=== PATIENT | male | born 1975 | race Caucasian/White ===

== ENCOUNTER → 2019-08-30 15:36 | Outpatient (CLI) | payer OTHER, MEDICAID, SELFPAY ==
[2019-08-30 19:11] LABS: Thyroid Stimulating Hormone 139 uIU/mL (0.47-4.68)
== END ==
PROVIDERS: Family Provider Family Medicine; PCP Family Medicine; Referring Provider Family Medicine; Visit Provider Family Medicine
DX: Z00.00 Encounter for general adult medical examination without abnormal findings (principal); E03.9 Hypothyroidism, unspecified; E78.5 Hyperlipidemia, unspecified; E27.49 Other adrenocortical insufficiency
CPT/HCPCS: 36415; 84443

== ENCOUNTER → 2019-09-27 16:39 | Outpatient (CLI) | payer OTHER, MEDICAID, SELFPAY ==
[2019-09-27 18:01] LABS: Add Manual Diff / Slide Review NO; Basophils Absolute Auto 100 /uL (0-100); Basophils Percent Auto 0.7 % (0-2); Eosinophils Absolute Auto 200 /uL (0-450); Eosinophils Percent Auto 2.5 % (2-4); Hematocrit 40.7 % (41-53); Lymphocytes Absolute Auto 1600 /uL (1100-4500); Lymphocytes Percent Auto 22.7 % (25-40); Mean Corpuscular HGB Conc 34.5 % (30-36); Mean Corpuscular Volume 98.5 fL (80-100); Monocytes Absolute Auto 600 /uL (0-900); Monocytes Percent Auto 8.2 % (3-14); Neutrophils Absolute Auto 4700 /uL (1500-7000); Neutrophils Percent Auto 65.9 % (50-75); Platelet Count 279 X10^3/uL (150-400); Red Blood Cell Count 4.13 X10^6/uL (4.5-5.9); Red Cell Distribution Width 13.6 % (11.6-14.8); White Blood Cell Count 7.1 X10^3/uL (4.5-11.0)
[2019-09-27 19:14] LABS: Alanine Aminotransferase 17 IU/L (<50); Albumin 4.7 g/dL (3.5-5.0); Albumin Globulin Ratio 1.9 (1.0-2.8); Alkaline Phosphatase 89 U/L (38-126); Aspartate Aminotransferase 25 IU/L (17-59); BUN Creatinine Ratio 22.3 (6-22); Bilirubin Total 0.5 mg/dL (0.2-1.3); Blood Urea Nitrogen 21 mg/dL (9-20); Calcium 9.6 mg/dL (8.4-10.2); Carbon Dioxide 29 mmol/L (22-32); Chloride 98 mmol/L (98-107); Cholesterol 136 mg/dL (140-199); Estimated Glomerular Filt Rate > 60.0 mL/min (>60); Globulin 2.5 g/dL (1.7-4.1); Glucose 106 mg/dL (70-100); HDL Cholesterol 44 mg/dL (40-60); HEMOLYSIS < 15 (0-50); LDL Cholesterol Calculated 59 mg/dL (<100); Potassium 3.7 mmol/L (3.4-5.1); Sodium 138 mmol/L (137-145); Total Protein 7.2 g/dL (6.3-8.2); Triglycerides 165 mg/dL (35-150)
[2019-09-27 19:25] LABS: LDL Cholesterol Direct 80 mg/dL (<100)
== END ==
PROVIDERS: Family Provider Family Medicine; PCP Family Medicine; Referring Provider Family Medicine; Visit Provider Family Medicine
DX: Z00.00 Encounter for general adult medical examination without abnormal findings (principal); E78.5 Hyperlipidemia, unspecified
CPT/HCPCS: 36415; 80053; 80061; 83721; 85025

== ENCOUNTER 2020-03-27 22:29 | Emergency (ER) | payer OTHER, MEDICAID, SELFPAY ==
[2020-03-27 22:40] VITALS: BP 176/100; PULSE 107; RESP 20; TEMP 37.2; O2SAT 100
--- NOTE | 2020-03-27 23:57 | DI.US.S_ITS ---
PROCEDURE: US SCROTUM INDICATIONS: BILATERAL TESTICULAR PAIN TECHNIQUE: Real-time scanning was performed of the scrotum and testicles, with image documentation. Color and pulse Doppler interrogation was performed of both testicles. COMPARISON: None. FINDINGS: Right: Testicle is normal in size at 4.0 x 2.8 x 2.5 cm, and homogenous in echotexture. Epididymis is normal in overall size and morphology. Trace right hydrocele. No varicoceles. Overlying scrotal skin is normal in thickness. Left: Testicle is normal in size at 4.2 x 2.4 x 3.0 cm, and homogeneous in echotexture. There is a 5 mm cyst in the epididymal head. Epididymis is normal in overall size and morphology. No hydrocele or varicoceles. Overlying scrotal skin is normal in thickness. Doppler: Color and pulse Doppler demonstrate normal and symmetric arterial flow in both testicles. IMPRESSION: 1. Normal ultrasound appearance of testicles. No testicular mass or findings to suggest testicular torsion. 2. A 5 mm cyst in the left epididymal head. 3. Trace right hydrocele. No significant discrepancy with the [facility] radiology preliminary report. Dictated by: Abundio Melton M.D. on 03/28/2020 at 8:57 Approved by: Abundio Melton M.D. on 03/28/2020 at 9:00
--- NOTE | 2020-03-27 23:58 | ED_ITS ---
HPI - Male Genitourinary General Chief complaint: Urogenital-Male Stated complaint: testicular pain moving up Time Seen by Provider: 03/27/20 22:37 Source: patient Mode of arrival: Ambulatory History of Present Illness HPI Narrative: Patient complains of bilateral testicular pain and groin pain for the past 6 weeks. No known injury. No urethral discharge. Pain is intermittent. Denies any past STDs or exposure. No known injury. No history of hernias. Blood pressure noted. Patient is anxious. No urethral discharge. No urinary complaints. No hematuria. MD Complaint: testicle pain Related Data Home Medications Medication Instructions Recorded Confirmed pravastatin 10 mg PO QDAY #0 08/28/12 Allergies Allergy/AdvReac Type Severity Reaction Status Date / Time Penicillins [PENICILLINS] Allergy Unknown Unverified 06/16/17 11:53 venom-honey bee Allergy Unknown Unverified 06/16/17 11:53 [BEE VENOM (HONEY BEE)] Review of Systems Review of Systems Narrative: GENERAL: Denies chills, fatigue, malaise, fever, sweats. HEENT: Denies sinus pain, ear pain, sore throat, difficulty swallowing RESPIRATORY: Denies dyspnea, cough CARDIOVASCULAR: Denies chest pain, palpitations, edema, GASTROINTESTINAL: Denies nausea, vomiting, abdominal pain, diarrhea, constipation, melena. : Denies dysuria, frequency, hematuria, complains of testicular pain MUSCULOSKELETAL: denies muscle or bony pain SKIN: Denies rash, skin lesions NEUROLOGIC: Denies weakness, headache, numbness, change in speech, confusion PSYCHIATRIC: No SI or HI or hallucinations ROS Unobtainable: All systems reviewed & are unremarkable except as noted in HPI and below Exam Narrative Exam Narrative: GENERAL: patient appears stated age. Well-nourished, well- developed patient, in no distress, not toxic not dyspneic HEAD: Normocephalic. CARDIOVASCULAR: Regular rate and rhythm without murmurs, gallops, or rubs. RESPIRATORY: Clear to auscultation. Breath sounds equal bilaterally. No wheezes, rales, or rhonchi. GASTROINTESTINAL: Abdomen soft, non-tender, nondistended. : Normal external exam. Patient is circumcised. No scrotal swelling or erythema induration. No crepitus. Mild inguinal bilateral tenderness but no palpable mass. No testicular or epididymal tenderness. No pain and upper portion exam. No palpable a hernia on digital insertion into scrotal sacs bilaterally. Patient coughed and no palpable bulging hernia. No lesions. No urethral discharge. Patient shaves area BACK: Nontender without deformity or crepitance. No flank tenderness. NEURO: AOx4. SKIN: Warm and dry PSYCH: Slightly anxious, is cooperative Initial Vital Signs Initial Vital Signs: Vital Signs Temperature 99.0 F 03/27/20 22:40 Pulse Rate 107 H 03/27/20 22:40 Respiratory Rate 20 03/27/20 22:40 Blood Pressure 176/100 H 03/27/20 22:40 Pulse Oximetry 100 03/27/20 22:40 Course Course Course Narrative: No new complaints during course of stay Orders Ordered: ED Orders 03/27/20 23:57 US scrotum Stat Reevaluation(s) Reevaluation #1: Reviewed results with patient. He feels relieved with findings so far. Agrees with treatment plan and discharge home and follow-up with urology and family doctor Time: 01:30 Vital Signs Vital signs: Vital Signs - 8 hr 03/27/20 22:40 03/28/20 00:06 03/28/20 01:33 Temperature 99.0 F 98.0 F 98 F Pulse Rate 107 H 105 H 102 H Respiratory Rate 20 20 22 Blood Pressure 176/100 H 153/101 H 159/113 H Pulse Oximetry 100 98 98 MDM - Male Genitourinary Differential Diagnosis Differential diagnosis: Likely urinary tract infection, epididymitis and inguinal hernia Lab Data Attestation: I reviewed the patient's lab results. Labs: Urine Dip Bedside Urine Glucose Negative Bedside Urine Bilirubin + 1 Bedside Urine Ketone +/- 5 Urine Specific [place] 1.030 Bedside Urine Occult Blood - Negative Bedside Urine pH 6.0 Bedside Urine Protein + 30 Bedside Urine Urobilinogen - Negative Bedside Urine Nitrite - Negative Bedside Urine Leukocytes - Negative Esterase Imaging Data Ultrasound scrotal: Radiologist's Impression: No evidence of testicular torsion or increased vascularity. Small right hydrocele. Left epididymal head cyst. MDM Narrative Medical decision making narrative: Appropriate for discharge home. Blood pressure to be or checked with family doctor/clinic. Patient states he is very anxious being here. No chest pain. No neuro complaints. No dyspnea. Blood pressure did improve, heart rate noted but again patient is very anxious Discharge Plan Departure Patient Disposition: Home Clinical Impression: Pain in both testicles Instructions: Essential Hypertension, DI for Varicocele, Epididymal Cyst Activity Restrictions/Additional Instructions: Return if worsening questions concerns. Call provided urology office in the morning for office recheck in a week. See family doctor or call provided clinic tooth pain family doctor to have blood pressure checked within a week. No smoking. Prescriptions: No Action pravastatin 10 MG tablet 10 mg PO QDAY Qty: 0 RF: 0 Referrals: [facility] [Outside] Fabio Tom MD [Physician] - Sreedhar Zaman MD [Primary Care Provider] -
[2020-03-28 00:06] VITALS: BP 153/101; PULSE 105; RESP 20; TEMP 36.7; O2SAT 98
[2020-03-28 01:33] VITALS: BP 159/113; PULSE 102; RESP 22; TEMP 36.6; O2SAT 98
== END 2020-03-28 01:35 | disposition home or self-care (01) ==
PROVIDERS: Emergency Provider Emergency Medicine; Family Provider Family Medicine; PCP Family Medicine
DX: N50.812 Left testicular pain (principal); N50.811 Right testicular pain; F41.9 Anxiety disorder, unspecified
CPT/HCPCS: 76870; 81003; 99283

== ENCOUNTER 2022-11-08 17:48 | Emergency (ER) | payer OTHER, MEDICAID, SELFPAY ==
[2022-11-08 17:51] VITALS: BP 175/101; PULSE 69; RESP 18; TEMP 36.6; O2SAT 95; BMI 25.8
--- NOTE | 2022-11-08 18:03 | DI.RAD.S_ITS ---
PROCEDURE: XR HUMERUS RT 2V INDICATIONS: Fall onto metal sheeting yesterday with open tear. TECHNIQUE: 2 views of the humerus were acquired. COMPARISON: None. FINDINGS: Bones: No fractures or dislocations. No suspicious bony lesions. Soft tissues: Soft tissue irregularity is seen. Macrophage no significant soft tissue gas is seen. IMPRESSION: Soft tissue irregularity, without a radiopaque foreign body. No focal bony abnormality is seen. Dictated by: Michael Mcgarry M.D. on 11/08/2022 at 17:27 Approved by: Michael Mcgarry M.D. on 11/08/2022 at 17:27
--- NOTE | 2022-11-08 18:12 | ED.UPPEXIN ---
HPI - Extremity Injury (Upper) General Chief Complaint: Extremity Injury, Upper Stated Complaint: R/upper arm LAC thinks needs stitches Time Seen by Provider: 11/08/22 17:56 Source: patient Mode of arrival: Ambulatory History of Present Illness HPI narrative: Patient 46-year-old male past medical history hypothyroid hyperlipidemia not on medication presenting today with right arm laceration. He reports that he fell in the garage yesterday on a metal shelf denies any other injury. He placed inappropriate bandage with duct tape and came in today for evaluation. He is not on any antiplatelet or anticoagulation medication. He denies any other injury. No numbness tingling or weakness. Related Data Home Medications Medication Instructions Recorded Confirmed pravastatin 10 mg tablet 10 mg PO QDAY ##0 08/28/12 Previous Rx's Medication Instructions Recorded doxycycline hyclate 100 mg capsule 100 mg PO BID #14 caps 11/08/22 Allergies Allergy/AdvReac Type Severity Reaction Status Date / Time Penicillins [PENICILLINS] Allergy Unknown Verified 11/08/22 18:17 venom-honey bee Allergy Unknown Verified 11/08/22 18:17 [BEE VENOM (HONEY BEE)] Review of Systems Review of Systems ROS Unobtainable: All systems reviewed & are unremarkable except as noted in HPI and below Patient History Social History Smoking Status: Current every day smoker Smoking Status: Current every day smoker tobacco type: cigarettes alcohol intake frequency: 3 or more drinks per day Alcohol type: hard liquor Substance Use Type: marijuana Exam Initial Vital Signs Initial Vital Signs: Vital Signs Temperature 97.9 F 11/08/22 17:51 Pulse Rate 69 11/08/22 17:51 Respiratory Rate 18 11/08/22 17:51 Blood Pressure 175/101 H 11/08/22 17:51 Pulse Oximetry 95 11/08/22 17:51 Oxygen Delivery Method Room Air 11/08/22 17:51 GENERAL: Alert 46-year-old male CARDIOVASCULAR: peripheral pulses in tact, cap refill <2 sec RESPIRATORY: No respiratory distress, speaks in full sentences without difficulty EXTREMITIES: Normal range of motion, no clubbing or edema. Neurovascularly intact Right arm distal radial pulse intact sensation over deltoid intact NEUROLOGICAL: Cranial nerves II through XII grossly intact. Normal gait and speech. SKIN: Right upper posterior arm triangular like has a reassuring 6 cm in length 2.5 cm wide adipose tissue exposed only. No significant debris Course Orders Ordered: ED Orders 11/08/22 18:03 XR humerus RT 2V Stat Discontinued Medications Diphtheria/Tetanus/Acell Pertussis (Tet,Diph,Pertuss(Acell),Vac/Pf 0.5 Ml Syringe) 0.5 ml IM .ONCE ONE Stop: 11/08/22 18:04 Last Admin: 11/08/22 18:18 Dose: 0.5 ml Documented By: RB Vital Signs Vital signs: Vital Signs - 8 hr 11/08/22 17:51 11/08/22 18:20 11/08/22 18:46 Temperature 97.9 F 98.1 F Pulse Rate 69 80 Pulse Rate [Right] 88 Respiratory Rate 18 15 Blood Pressure 175/101 H 162/82 H Pulse Oximetry 95 96 Oxygen Delivery Method Room Air Room Air MDM - Extremity Injury (Upper) Imaging Data Extremity x-ray #1: Radiologist's Impression: PROCEDURE:? XR HUMERUS RT 2V ? INDICATIONS:? Fall onto metal sheeting yesterday with open tear. ? TECHNIQUE:? 2 views of the humerus were acquired.? ? COMPARISON:? None. ? FINDINGS:? ? Bones:? No fractures or dislocations.? No suspicious bony lesions.? ? Soft tissues:? Soft tissue irregularity is seen.? Macrophage no significant soft tissue gas is seen. ? ? IMPRESSION:? Soft tissue irregularity, without a radiopaque foreign body. ? No focal bony abnormality is seen. ? ? Dictated by: Michael Mcgarry M.D. on 11/08/2022 at 17:27 [facility] Narrative Medical decision making narrative: Patient I was rather large laceration right arm with adipose tissue exposed it has been open now for about 24 hours no indication for sutures. X-ray is negative. Awake alert no other signs of injury tetanus is up-to-date. Wound is irrigated and cleaned by nursing appropriate dressing placed. Will start on antibiotics it has been open for the last 24 hours Discharge Plan Departure Patient Disposition: Home Clinical Impression: Laceration Instructions: DI for Laceration Repair Activity Restrictions/Additional Instructions: *You have been diagnosed with right arm laceration *What to do: You may keep bandage on there for a couple of days bathe with soap and water. Please monitor for any worsening redness fever or pain *Continue to take medications as directed Doxycycline 100 mg twice a day for 7 days-->[facility] *Follow up with your primary care provider in 2-3 days or call [phone] *Return to ER if you should have increasing redness fever pain or any new, worsening or concerning symptoms Prescriptions: New doxycycline hyclate 100 mg capsule 100 mg PO BID Qty: 14 0RF No Action pravastatin 10 MG tablet 10 mg PO QDAY Qty: 0 Referrals: Sreedhar Zaman MD [Primary Care Provider] - Stand Alone Forms: Patient Portal/API
[2022-11-08] MEDS: TET,DIPH,PERTUSS(ACELL),VAC/PF 0.5 ML SYRINGE IM (18:18)
[2022-11-08 18:20] VITALS: PULSE 88
[2022-11-08 18:46] VITALS: BP 162/82; PULSE 80; RESP 15; TEMP 36.7; O2SAT 96
== END 2022-11-08 18:47 | disposition home or self-care (01) ==
PROVIDERS: Emergency Provider Emergency Medicine; Family Provider Family Medicine; PCP Family Medicine
DX: S41.111A Laceration without foreign body of right upper arm, initial encounter (principal); W18.00XA Striking against unspecified object with subsequent fall, initial encounter; Z23 Encounter for immunization
CPT/HCPCS: 73060; 90471; 99283; 99284; 90715

== ENCOUNTER → 2023-06-16 14:31 | Outpatient (CLI) | payer OTHER, MEDICAID, SELFPAY ==
[2023-06-16 15:32] LABS: Add Manual Diff / Slide Review NO; Basophils Absolute Auto 100 /uL (0-100); Basophils Percent Auto 1.1 % (0-2); Eosinophils Absolute Auto 400 /uL (0-450); Eosinophils Percent Auto 5.1 % (2-4); Hematocrit 38.6 % (41-53); Hemoglobin 12.9 g/dL (13.5-17.5); Lymphocytes Absolute Auto 2000 /uL (1100-4500); Lymphocytes Percent Auto 26.8 % (25-40); Mean Corpuscular HGB Conc 33.4 % (30-36); Mean Corpuscular Hemoglobin 29.5 PG (26-34); Mean Corpuscular Volume 88.3 fL (80-100); Monocytes Absolute Auto 600 /uL (0-900); Monocytes Percent Auto 7.6 % (3-14); Neutrophils Absolute Auto 4500 /uL (1500-7000); Neutrophils Percent Auto 59.4 % (50-75); Platelet Count 317 X10^3/uL (150-400); Red Blood Cell Count 4.37 X10^6/uL (4.5-5.9); Red Cell Distribution Width 15.6 % (11.6-14.8); White Blood Cell Count 7.5 X10^3/uL (4.5-11.0)
[2023-06-16 15:41] LABS: Hemoglobin A1C% w Est Avg Glu 5.6 % (4.0-6.0)
[2023-06-16 15:51] LABS: Alanine Aminotransferase 15 IU/L (<50); Albumin 4.5 g/dL (3.5-5.0); Albumin Globulin Ratio 1.4 (1.0-2.8); Alkaline Phosphatase 67 U/L (38-126); Aspartate Aminotransferase 17 IU/L (17-59); BUN Creatinine Ratio 32.9 (6-22); Bilirubin Total 0.4 mg/dL (0.2-1.3); Blood Urea Nitrogen 28 mg/dL (9-20); Calcium 9.4 mg/dL (8.4-10.2); Carbon Dioxide 29 mmol/L (22-32); Chloride 102 mmol/L (98-107); Cholesterol 131 mg/dL (140-199); Estimated Glomerular Filt Rate > 60 mL/min (>60); Globulin 3.2 g/dL (1.7-4.1); Glucose 93 mg/dL (70-100); HDL Cholesterol 38 mg/dL (40-60); HEMOLYSIS < 15 (0-50); LDL Cholesterol Calculated 68 mg/dL (<100); Potassium 4.3 mmol/L (3.4-5.1); Sodium 139 mmol/L (137-145); Total Protein 7.7 g/dL (6.3-8.2); Triglycerides 125 mg/dL (35-150)
[2023-06-16 17:04] LABS: HIV 1 & 2 Ab/Ag 4th Gen Combo NEGATIVE (NEGATIVE); Hep C Virus Ab w/Reflex Quant NEGATIVE s/c (NEGATIVE)
[2023-06-18 05:22] LABS: Free T4, Direct Thyroxine 0.74 ng/dL (0.78-2.19)
== END ==
PROVIDERS: Family Provider Family Medicine; PCP Family Medicine; Referring Provider Family Medicine; Visit Provider Family Medicine
DX: I10 Essential (primary) hypertension (principal); E78.5 Hyperlipidemia, unspecified; E03.9 Hypothyroidism, unspecified; J44.9 Chronic obstructive pulmonary disease, unspecified
CPT/HCPCS: 80053; 80061; 83036; 84439; 84443; 85025; 86803; 87389

== ENCOUNTER → 2023-07-26 17:08 | Outpatient (CLI) | payer OTHER, MEDICAID, SELFPAY | PROVIDERS: Family Provider Family Medicine; PCP Family Medicine; Referring Provider Family Medicine; Visit Provider Family Medicine | DX: J44.9 Chronic obstructive pulmonary disease, unspecified (principal); F17.210 Nicotine dependence, cigarettes, uncomplicated; R94.2 Abnormal results of pulmonary function studies | CPT/HCPCS: 94060; 94729 ==

== ENCOUNTER → 2023-09-01 16:07 | Outpatient (CLI) | payer OTHER, MEDICAID, SELFPAY ==
--- NOTE | 2023-09-01 16:09 | DI.CT.S_ITS ---
PROCEDURE: CT CHEST HIGH RESOLUTION INDICATIONS: ILD seen on x-ray, evaluate for ILD TECHNIQUE: Noncontrast 1.0 and 5.0 mm thick contiguous axial sections from the pulmonary apex to the posterior costophrenic angles, with 7 mm thick coronal and sagittal MIP reformats. 1 mm thick dynamic expiratory images acquired through the upper, mid, and lower lungs. 1.0 mm thick axial sections acquired from the maninder to the posterior costophrenic angles in the prone end-inspiration position. For radiation dose reduction, the following was used: automated exposure control, adjustment of mA and/or kV according to patient size. COMPARISON: None. FINDINGS: Image quality: Diagnostic. Lower Neck: No enlarged lymph nodes. Thyroid: Diminutive. Axillae: No enlarged lymph nodes. Chest Wall: Unremarkable. Bones: Unremarkable. Lungs and Pleura: No pneumothorax or pleural effusions. Atypical cystic lesion in the left upper lobe with a mildly thickened wall. Wall thickness measures 4 by 2 mm (series 2, image 107). Additional minimally thickened wall cystic lesion in the central left lower lobe (series 8, image 163). 1.6 x 1.5 cm ground-glass nodule in the posterior right upper lobe (series 2, image 95). Diffuse bronchial thickening with bronchial secretions. Scattered regions of tree-in-bud nodules, predominantly within the lower lobes. 2.6 x 1.4 cm part solid nodule in the anterior right middle lobe. Solid component measures 3 mm (series 2, image 188). Heart: Heart size is normal. No pericardial effusion. Marked coronary cardiac calcifications for age. Thoracic Vessels: The aorta and pulmonary arteries demonstrate normal size. Mediastinum and Khloe: No enlarged lymph nodes. Esophagus: No wall thickening. No hiatal hernia. Upper Abdomen: Visualized upper abdomen solid organs and bowel loops appear normal. IMPRESSION: No definite evidence of interstitial lung disease. Atypical cyst with peripheral nodularity in the left upper lobe. Recommend six-month follow-up as findings could represent malignancy. Additional cystic lesions with thinner knox are present, which require attention on follow-up. Diffuse bronchial thickening with scattered regions of tree-in-bud nodules. Findings likely indicate infectious or inflammatory bronchitis/bronchiolitis. Aspiration and non tuberculous mycobacterium infection is not excluded. Correlate with risk factors. This could be re-evaluated in 6 months. Ground-glass and part solid nodules in the lungs. Recommend six month follow-up, per Fleischner Society guidelines. Diminutive thyroid, which may indicate thyroiditis. Correlate with thyroid panel if this is a possible new diagnosis. Marked coronary artery calcifications for age. Correlate with risk factors and advise counseling. Dictated by: Lul Farmer M.D. on 09/02/2023 at 8:44 Approved by: Lul Farmer M.D. on 09/02/2023 at 8:58
== END ==
PROVIDERS: Family Provider Family Medicine; PCP Family Medicine; Referring Provider Internal Medicine Critical Care Medicine; Visit Provider Internal Medicine Critical Care Medicine
DX: J84.9 Interstitial pulmonary disease, unspecified (principal); J98.4 Other disorders of lung; R91.8 Other nonspecific abnormal finding of lung field; I25.10 Atherosclerotic heart disease of native coronary artery without angina pectoris
CPT/HCPCS: 71250

== ENCOUNTER → 2023-09-10 11:22 | Outpatient (CLI) | payer OTHER, MEDICAID, SELFPAY ==
[2023-09-10 14:40] LABS: Free T4, Direct Thyroxine 1.04 ng/dL (0.78-2.19)
== END ==
LOC: LAB 11:23
PROVIDERS: Family Provider Family Medicine; PCP Family Medicine; Referring Provider Family Medicine; Visit Provider Family Medicine
DX: E03.9 Hypothyroidism, unspecified (principal); R06.2 Wheezing
CPT/HCPCS: 84439; 84443

== ENCOUNTER → 2023-11-12 12:30 | Outpatient (CLI) | payer OTHER, MEDICAID, SELFPAY ==
[2023-11-12 14:10] LABS: TSH w/ Reflex to FT4 6.17 uIU/mL (0.47-4.68)
== END ==
PROVIDERS: Family Provider Family Medicine; PCP Family Medicine; Referring Provider Family Medicine; Visit Provider Family Medicine
DX: E03.9 Hypothyroidism, unspecified (principal)
CPT/HCPCS: 36415; 84439; 84443

== ENCOUNTER → 2023-12-24 14:38 | Outpatient (CLI) | payer OTHER, MEDICAID, SELFPAY ==
[2023-12-24 16:27] LABS: TSH w/ Reflex to FT4 6.49 uIU/mL (0.47-4.68)
[2023-12-24 17:37] LABS: Free T4, Direct Thyroxine 1.15 ng/dL (0.78-2.19)
== END ==
LOC: LAB 14:39
PROVIDERS: Family Provider Family Medicine; PCP Family Medicine; Referring Provider Family Medicine; Visit Provider Family Medicine
DX: J44.9 Chronic obstructive pulmonary disease, unspecified (principal); E03.9 Hypothyroidism, unspecified
CPT/HCPCS: 36415; 83036; 84439; 84443

== ENCOUNTER → 2024-02-13 15:00 | Outpatient (CLI) | payer OTHER, MEDICAID, SELFPAY ==
--- NOTE | 2024-02-13 15:01 | DI.ECHO.S_ITS ---
[facility] : : [id number] : [place] : : [id number] : : Phone: [phone] Echocardiogram Report + + :Name: JULIANNA OG SR Jodie Study Date: 02/13/2024 Height: 68 in : :[facility] ReadingLocation: Weight: 225 lb : : Gender: Male BSA: 2.1 m2 : :: 1975 Age: 48 yrs BP: 141/81 mmHg: :Reason For Study: SHORTNESS OF BREATH : :Ordering Physician: HEMA, : :LIZZIE Performed By: Sven Sprague : :Referring: LIZZIE GARRIDO : + + Interpretation Summary The left ventricle is normal in size. The left ventricle is hyperdynamic. The ejection fraction is estimated to be 70-75%. The right ventricle is normal in size and function. No significant valvular pathology seen. The IVC is of normal diameter and collapses less than 50% with a sniff. This suggests a right atrial pressure of 8 mm Hg. Procedure: A two-dimensional transthoracic echocardiogram with color flow and Doppler was performed. The study quality was technically good. There is no prior echocardiogram noted for this patient. The patient was in normal sinus rhythm during the exam. Left Ventricle: The left ventricle is normal in size. There is normal left ventricular wall thickness. There is no echo evidence for significant left ventricular outflow tract obstruction. There is no thrombus. The ejection fraction is estimated to be 70-75%. The left ventricle is hyperdynamic. There are no focal wall motion abnormalities. Diastolic parameters suggest probable normal left ventricular diastolic function and normal filling pressures. Right Ventricle: The right ventricle is normal in size and function. Atria: The left atrial size is normal. The right atrium is mildly dilated. There is no Doppler evidence for an interatrial shunt. Mitral Valve: The mitral valve leaflets appear to open well. The mitral valve leaflets appear borderline thickened, but open well. There is no mitral regurgitation noted. Aortic Valve: The aortic valve is trileaflet. The aortic valve opens well. There is no aortic valve stenosis. No aortic regurgitation is present. Tricuspid Valve: The tricuspid valve leaflets are thin and pliable. There is trace tricuspid regurgitation. Pulmonary artery pressures cannot be estimated because of the lack of a measurable TR jet velocity. Pulmonic Valve: The pulmonic valve is normal in structure and function. There is no pulmonic valvular regurgitation. Great Vessels: The aortic root is normal size. The dimensions of the ascending aorta are normal. The pulmonary artery is normal size. The IVC is of normal diameter and collapses less than 50% with a sniff. This suggests a right atrial pressure of 8 mm Hg. Pericardium/ Pleura There is no pericardial effusion. There is a small left- sided pleural effusion. MMode/2D Measurements & Calculations LVIDd: 5.1 cm LVOT diam: 2.4 cm LVIDs: 3.2 cm Ao root diam: 3.7 cm FS: 37.9 % asc Aorta Diam: 3.4 cm EPSS: 0.72 cm IVSd: 0.93 cm LVPWd: 0.93 cm LV jackson. diameter/BSA (cm/m^2): 2.4 LV sys. diameter/BSA (cm/m^2): 1.5 LA A2 area: 22.5 cm2 RA long axis: 5.3 cm LA A4 area: 19.5 cm2 RA area: 18.8 cm2 LA length (vol): 5.3 cm RA vol: 57.1 ml LA vol: 70.7 ml RA : 26.6 ml/m2 LA vol index: 32.9 ml/m2 IVC diam: 1.7 cm RVD1 (basal): 3.8 cm RVD2 (mid): 3.2 cm TAPSE: 3.2 cm Doppler Measurements & Calculations Ao V2 max: 181.8 cm/sec LVOT Max Jacek: 143.3 cm/sec Ao V2 mean: 129.2 cm/sec LV V1 max P.2 mmHg Ao max P.2 mmHg LV V1 VTI: 27.7 cm Ao mean P.5 mmHg DELORIS(I,D): 3.8 cm2 Ao V2 VTI: 32.5 cm DELORIS(V,D): 3.5 cm2 sev ratio: 0.85 DELORIS indexed to BSA (cm^2/m^2): 1.8 MV E max jacek: 87.3 cm/sec PA V2 max: 104.6 cm/sec MV A max jacek: 81.4 cm/sec PA V2 mean: 73.8 cm/sec MV E/A: 1.1 PA mean P.4 mmHg Med Peak E' Jacek: 10.4 cm/sec PA pr(Accel): 36.2 mmHg E/E' med: 8.4 Lat Peak E' Jacek: 11.3 cm/sec E/E' lat: 7.7 E/e' average: 8.1 MV dec time: 0.19 sec SV(LVOT): 123.8 ml Reading Physician:04:06 PM
== END ==
PROVIDERS: Family Provider Family Medicine; PCP Family Medicine; Referring Provider Family Medicine; Visit Provider Family Medicine
DX: J90 Pleural effusion, not elsewhere classified (principal); R06.02 Shortness of breath
CPT/HCPCS: 93306

== ENCOUNTER 2024-02-19 18:56 | Emergency (ER) | payer OTHER, SELFPAY ==
[2024-02-19 19:15] VITALS: BP 132/76; PULSE 90; RESP 17; TEMP 36.7; O2SAT 94; BMI 31.8
[2024-02-19 19:43] LABS: Strep Grp A by PCR Rapid Negative (Negative)
[2024-02-19 20:27] VITALS: BP 141/84; PULSE 87; O2SAT 96
[2024-02-19 20:30] VITALS: BP 149/88; PULSE 83; O2SAT 97
[2024-02-19 21:00] VITALS: BP 148/89; PULSE 77; O2SAT 96
--- NOTE | 2024-02-19 21:12 | ED_ITS ---
HPI - General Adult General Chief complaint: Upper Respiratory Symptoms Stated complaint: SOB, hard time swallowing Time Seen by Provider: 02/19/24 20:16 Source: patient Mode of arrival: Ambulatory History of Present Illness HPI narrative: 48-year-old male here for evaluation of a sore throat, shortness of breath. No fevers. His finishing a course of amoxicillin prescribed an outside facility. At that facility he did have a negative strep test. Reports he was had continued throat discomfort. He was on oxygen secondary to COPD. Is on prednisone as well. Denies any fevers. Related Data Home Medications Medication Instructions Recorded Confirmed buprenorphine 8 mg-naloxone 2 mg 10 mg sublingual 3XD 06/16/23 01/25/24 sublingual film (Suboxone) epinephrine 0.3 mg/0.3 mL 1 mg IM DAILY 07/20/23 01/25/24 injection, auto-injector gabapentin 300 mg capsule 300 mg PO 3XD 07/20/23 01/25/24 tizanidine 2 mg tablet 2 mg PO 3XD 07/20/23 01/25/24 Previous Rx's Medication Instructions Recorded bupropion HCl 150 mg 24 hr tablet, 450 mg (3 x 150 mg) PO DAILY #90 06/16/23 extended release tabs losartan 100 mg tablet 100 mg PO DAILY #90 tabs 06/16/23 oxybutynin chloride 5 mg tablet 5 mg PO DAILY #90 tabs 06/16/23 trazodone 50 mg tablet 150 mg (3 x 50 mg) PO BEDTIME PRN 06/16/23 sleep #90 tabs triamcinolone acetonide 0.1 % 1 applic topical BID PRN rash #30 06/16/23 topical cream grams nicotine (polacrilex) 4 mg buccal 4 mg buccal Q8H PRN nicotine 07/20/23 mini lozenge cravings #72 ea atorvastatin 40 mg tablet (Lipitor) 40 mg PO DAILY #90 tabs 09/10/23 fluoxetine 10 mg capsule (Prozac) 10 mg PO DAILY #90 caps 09/10/23 albuterol sulfate 90 mcg/actuation 2 puff inhalation Q4-6H PRN 09/15/23 aerosol inhaler shortness of breath or wheezing #17 grams albuterol sulfate 2.5 mg/3 mL 2.5 mg (3 mL) inhalation 3XD PRN 10/29/23 (0.083 %) solution for nebulization for wheezing #300 mL nebulizer and compressor #1 ea 11/06/23 ipratropium 0.5 mg-albuterol 3 mg 3 ml inhalation QID PRN shortness 12/24/23 (2.5 mg base)/3 mL nebulization of breath or wheezing #180 mL soln prednisone 50 mg tablet 50 mg PO DAILY wheezing 5 days #5 12/24/23 tabs tiotropium bromide 18 mcg capsule 1 cap inhalation DAILY #30 12/24/23 with inhalation device (Spiriva inhalations with HandiHaler) levothyroxine 175 mcg capsule 175 mcg PO DAILY #30 caps 12/26/23 Oxygen #1 ea 01/11/24 prednisone 20 mg tablet See Rx Instructions PO DAILY #60 01/11/24 tabs budesonide-formoterol HFA 160 2 puff inhalation TID #2 ea 01/21/24 mcg-4.5 mcg/actuation aerosol inhaler roflumilast 250 mcg tablet 250 mcg PO DAILY 4 weeks #30 tabs 01/21/24 metformin 500 mg tablet,extended 500 mg PO DAILY #90 tabs 01/25/24 release 24 hr Disabled Parking Permit #1 ea 02/14/24 Allergies Allergy/AdvReac Type Severity Reaction Status Date / Time Penicillins [PENICILLINS] Allergy Unknown Swelling Verified 02/19/24 19:15 of Lip/Tongue/Throat venom-honey bee AdvReac Unknown Localize Verified 02/19/24 19:15 [BEE VENOM (HONEY BEE)] swelling Review of Systems Review of Systems ROS Unobtainable: All systems reviewed & are unremarkable except as noted in HPI and below Patient History Medical History Vision disorder Hearing decreased Dry skin (~2021) Plantar warts (~2017) PTSD (post-traumatic stress disorder) (~2011) Depression (~2011) Anxiety (~2014) Neuropathy Shoulder pain (~2022) Ankle fracture (~2003) Foot pain (~2019) Chronic back pain (~1999) Ankle pain (~2003) Hx of varicose veins Bilateral hand numbness Alcohol abuse 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, mild, in early remission, abuse Methamphetamine abuse in remission (~1999) Insomnia COPD (chronic obstructive pulmonary disease) (~2023) Hypothyroidism (~1999) Hyperlipidemia Benign essential HTN Surgical History Anesthesia History of ankle surgery (~2003) Family History Mother Diabetes mellitus Hypertension Hyperlipidemia Grandfather History of heart disease Grandmother Cancer Social History Smoking Status: Current every day smoker Smoking Status: Current every day smoker tobacco type: cigarettes alcohol intake frequency: 3 or more drinks per day Alcohol type: hard liquor Exam Initial Vital Signs Initial Vital Signs: Vital Signs Temperature 98.1 F 02/19/24 19:15 Pulse Rate 90 02/19/24 19:15 Respiratory Rate 17 02/19/24 19:15 Blood Pressure 132/76 02/19/24 19:15 Pulse Oximetry 94 02/19/24 19:15 Oxygen Delivery Method Nasal Cannula 02/19/24 19:15 Oxygen Flow Rate 2 02/19/24 19:15 Const General: cooperative and comfortable HENMT Mouth: moist mucous membranes Throat: uvula midline, no peritonsillar masses, posterior oropharynx abnormal cobblestoning, erythema and exudates and no uvular edema Neck Lymphatic: lymphadenopathy Resp Effort & Inspection: normal respiratory effort Auscultation: clear to auscultation bilaterally Skin General: no rashes or lesions noted Course Orders Ordered: ED Orders 02/19/24 19:24 Strep Grp A by PCR Rapid Stat Throat Culture Stat Discontinued Medications Hydrocodone Bitart/Acetaminophen (Hydrocodone/Acet 5/325 Prepack) 1 bottle MISC DIRECTED ONE Stop: 02/19/24 21:13 Last Admin: 02/19/24 21:16 Dose: 1 bottle Documented By: Vital Signs Vital signs: Vital Signs - 8 hr 02/19/24 19:15 02/19/24 20:27 02/19/24 20:27 Temperature 98.1 F Pulse Rate 90 87 Respiratory Rate 17 Blood Pressure 132/76 141/84 H Pulse Oximetry 94 96 Oxygen Delivery Method Nasal Cannula Nasal Cannula Oxygen Flow Rate 2 2 02/19/24 20:30 02/19/24 20:30 02/19/24 21:00 Temperature Pulse Rate 83 77 Respiratory Rate Blood Pressure 149/88 H Pulse Oximetry 97 96 Oxygen Delivery Method Oxygen Flow Rate 12/14/24 21:00 Temperature Pulse Rate Respiratory Rate Blood Pressure 148/89 H Pulse Oximetry Oxygen Delivery Method Oxygen Flow Rate Medical Decision Making Lab Data Lab results reviewed: Yes I reviewed the patient's lab results. Labs: Lab Results 02/19/24 Range/Units 19:24 Group A Strep (PCR) Negative (Negative) MDM Narrative Medical decision making narrative: Rapid strep was negative however he was physical exam is consistent with strep throat. He was completing a course of amoxicillin. There was no signs that this is a peritonsillar abscess or retropharyngeal abscess. He was on oxygen. The dry oxygen maybe contributing to his sore throat as well. We discussed the use of humidification at home. We also discussed other topical medications that he can try to include Chloraseptic sprays and Cepacol drops. A throat culture was pending at the time of his discharge. No indication for admission the hospital. He was given return precautions. He expressed understanding and agreement. Discharge Plan Departure Patient Disposition: Home Clinical Impression: Sore throat Instructions: Sore Throat Activity Restrictions/Additional Instructions: The throat culture was pending at the time of your discharge we will contact you if we need to start medications based on this. Finish the course of antibiotics. Consider other humidification options to include the humidifie r/Vaseline. You can also try the topical sore throat medicines such as Cepacol drops/Chloraseptic sprays. Contact your primary doctor for a follow-up. Prescriptions: No Action (DME) nebulizer and compressor Device See Rx Instructions .Route Qty: 1 0RF Rx Instructions: As directed albuterol sulfate 90 mcg/actuation HFA aerosol inhaler 2 puff inhalation Q4-6H PRN (Reason: shortness of breath or wheezing) Qty: 17 11RF Rx Instructions: ok to fill early albuterol sulfate 2.5 mg /3 mL (0.083 %) solution for nebulization 2.5 mg inhalation 3XD PRN (Reason: for wheezing) Qty: 300 6RF levothyroxine 175 mcg capsule 175 mcg PO DAILY Qty: 30 11RF (DME) Disabled Parking Permit See Rx Instructions .ROUTE .MEDSUPPLY Qty: 1 0RF Rx Instructions: I find this patient to be medically disabled and qualified for Disabled Parking as indicated on the accompanying [employer] Parking Application for Individuals. gabapentin 300 mg capsule 300 mg PO 3XD tizanidine 2 mg tablet 2 mg PO 3XD Hold Instructions: Home Medication placed on hold at Doctor's office epinephrine 0.3 mg/0.3 mL auto-injector 1 mg IM DAILY nicotine (polacrilex) 4 mg mini lozenge 4 mg buccal Q8H PRN (Reason: nicotine cravings) Qty: 72 11RF ipratropium-albuterol 0.5 mg-3 mg(2.5 mg base)/3 mL solution for nebulization 3 ml inhalation QID PRN (Reason: shortness of breath or wheezing) Qty: 180 11RF tiotropium bromide [Spiriva with HandiHaler] 18 mcg capsule, w/inhalation device 1 cap inhalation DAILY Qty: 30 11RF Rx Instructions: puncture 1 cap using device; one dose = 2 inhalations prednisone 50 mg tablet 50 mg PO DAILY 5 Days Qty: 5 2RF Hold Instructions: Home Medication placed on hold at Doctor's office Rx Instructions: for acute COPD exacerbation. put on file buprenorphine-naloxone [Suboxone] 8-2 mg film 10 mg sublingual 3XD triamcinolone acetonide 0.1 % cream 1 applic topical BID PRN (Reason: rash) Qty: 30 11RF Rx Instructions: apply to affected areas for a 2 weeks if needed then stop for 1-2 weeks. can repeat as needed. losartan 100 mg tablet 100 mg PO DAILY Qty: 90 3RF oxybutynin chloride 5 mg tablet 5 mg PO DAILY Qty: 90 3RF trazodone 50 mg tablet 150 mg PO BEDTIME PRN (Reason: sleep) Qty: 90 11RF bupropion HCl 150 mg tablet extended release 24 hr 450 mg PO DAILY Qty: 90 11RF atorvastatin [Lipitor] 40 mg tablet 40 mg PO DAILY Qty: 90 3RF fluoxetine [Prozac] 10 mg capsule 10 mg PO DAILY Qty: 90 3RF prednisone 20 mg tablet See Rx Instructions PO DAILY Qty: 60 2RF Rx Instructions: 60 mg daily x 5 days, then 40 mg daily x 5 days, then 20 mg daily (DME) Oxygen See Rx Instructions .Route .MEDSUPPLY Qty: 1 0RF Rx Instructions: 2 L by NC at all times. please provide a concentrator and portable tanks. Room air saturation 83%. With 2 L of oxygen 95% metformin 500 mg tablet extended release 24 hr 500 mg PO DAILY Qty: 90 3RF roflumilast 250 mcg tablet 250 mcg PO DAILY 28 Days Qty: 30 5RF budesonide-formoterol 160-4.5 mcg/actuation HFA aerosol inhaler 2 puff inhalation TID Qty: 2 11RF Referrals: Valerie Gore DO [Primary Care Provider] - Stand Alone Forms: Patient Portal/API/Survey
[2024-02-19] MEDS: HYDROCODONE/ACET 5/325 PREPACK 1 BOTTLE MISC (21:16)
== END 2024-02-19 21:19 | disposition home or self-care (01) ==
PROVIDERS: Emergency Provider Emergency Medicine; Family Provider Family Medicine; PCP Family Medicine
DX: J02.9 Acute pharyngitis, unspecified (principal)
CPT/HCPCS: 87070; 87077; 87147; 87651; 99282; 99284

== ENCOUNTER → 2024-05-31 14:09 | Outpatient (CLI) | payer OTHER, SELFPAY ==
[2024-05-31 14:53] LABS: Add Manual Diff / Slide Review NO; Basophils Absolute Auto 0 /uL (0-100); Basophils Percent Auto 0.7 % (0-2); Eosinophils Absolute Auto 300 /uL (0-450); Hematocrit 35.7 % (41-53); Hemoglobin 11.8 g/dL (13.5-17.5); Lymphocytes Absolute Auto 1500 /uL (1100-4500); Lymphocytes Percent Auto 20.3 % (25-40); Mean Corpuscular HGB Conc 33.1 % (30-36); Mean Corpuscular Hemoglobin 30.5 PG (26-34); Monocytes Absolute Auto 700 /uL (0-900); Monocytes Percent Auto 9.2 % (3-14); Neutrophils Absolute Auto 4800 /uL (1500-7000); Neutrophils Percent Auto 65.8 % (50-75); Platelet Count 222 X10^3/uL (150-400); Red Blood Cell Count 3.89 X10^6/uL (4.5-5.9); Red Cell Distribution Width 15.7 % (11.6-14.8); White Blood Cell Count 7.3 X10^3/uL (4.5-11.0)
[2024-05-31 15:16] LABS: Hemoglobin A1C% w Est Avg Glu 6.2 % (4.0-6.0)
[2024-05-31 15:25] LABS: Alanine Aminotransferase 32 IU/L (<50); Albumin 4.5 g/dL (3.5-5.0); Albumin Globulin Ratio 1.7 (1.0-2.8); Alkaline Phosphatase 95 U/L (38-126); Aspartate Aminotransferase 25 IU/L (17-59); BUN Creatinine Ratio 17.9 (6-22); Bilirubin Total 0.4 mg/dL (0.2-1.3); Blood Urea Nitrogen 20 mg/dL (9-20); Calcium 9.1 mg/dL (8.4-10.2); Carbon Dioxide 30 mmol/L (22-32); Chloride 98 mmol/L (98-107); Estimated Glomerular Filt Rate > 60 mL/min (>60); Globulin 2.6 g/dL (1.7-4.1); Glucose 179 mg/dL (70-100); HEMOLYSIS < 15 (0-50); Potassium 3.8 mmol/L (3.4-5.1); Sodium 139 mmol/L (137-145); Total Protein 7.1 g/dL (6.3-8.2)
[2024-05-31 15:55] LABS: TSH w/ Reflex to FT4 8.61 uIU/mL (0.47-4.68)
[2024-05-31 16:41] LABS: Free T4, Direct Thyroxine 0.92 ng/dL (0.78-2.19)
== END ==
PROVIDERS: PCP Family Medicine; Referring Provider Family Medicine; Visit Provider Family Medicine
DX: R73.01 Impaired fasting glucose (principal); E03.9 Hypothyroidism, unspecified; J84.9 Interstitial pulmonary disease, unspecified; J44.9 Chronic obstructive pulmonary disease, unspecified
CPT/HCPCS: 36415; 80053; 83036; 84439; 84443; 85025; 99215

== ENCOUNTER → 2024-06-12 14:43 | Outpatient (CLI) | payer OTHER, SELFPAY ==
--- NOTE | 2024-06-12 14:44 | DI.CT.S_ITS ---
PROCEDURE: CT CHEST HIGH RESOLUTION INDICATIONS: Multiple pulmonary nodules, eval for change TECHNIQUE: Noncontrast 1.0 and 5.0 mm thick contiguous axial sections from the pulmonary apex to the posterior costophrenic angles, with 7 mm thick coronal and sagittal MIP reformats. 1 mm thick dynamic expiratory images acquired through the upper, mid, and lower lungs. 1.0 mm thick axial sections acquired from the maninder to the posterior costophrenic angles in the prone end-inspiration position. For radiation dose reduction, the following was used: automated exposure control, adjustment of mA and/or kV according to patient size. COMPARISON: [facility], CT, CT CHEST HIGH RESOLUTION, 09/01/2023, 16:16. FINDINGS: Image quality: Diagnostic Lungs and pleura: Diffuse increased centrilobular nodules. No dense airspace disease or pleural effusions. New nodular area with partial ground-glass attenuation at the periphery of the right lower lobe in aggregate measures 0.8 cm (2/193). Previous posterior right upper lobe ground-glass nodule is less well visualized today. Central left upper lobe multiloculated cystic lesion does not have a measurable thickened wall on today's study (2/132) Other cystic lesions are also seen, particular in the left lower lobe for example image 2/198. There are thin knox and septations. No definite nodular component. No significant changes identified on prone images. No significant air trapping identified on expiratory images. Mediastinum, heart, and esophagus: Normal heart size. Coronary calcifications. No pathologic lymphadenopathy by size criteria. Chest wall and thyroid: Unremarkable. Similar prominent left supraclavicular lymph nodes. Upper abdomen: No gross abnormality on these noncontrast images Bones: No aggressive appearing osseous abnormality. IMPRESSION: Increased diffuse centrilobular nodules likely infectious/inflammatory. The most significant new nodular area is at the periphery of the right lower lobe measuring up to 0.8 cm in aggregate. Another 3 to 6-month chest CT is recommended (high-resolution protocol not necessary for nodule follow-up). Previously identified left lung cystic lesions are stable, without definite nodular wall enhancement. Attention on follow-up. No significant findings of interstitial fibrosis. Coronary calcifications. Other findings above. Dictated by: Jonah Penaloza M.D. on 06/12/2024 at 16:32 Approved by: Jonah Penaloza M.D. on 06/12/2024 at 16:41
== END ==
PROVIDERS: PCP Family Medicine; Referring Provider Internal Medicine Critical Care Medicine; Visit Provider Internal Medicine Critical Care Medicine
DX: R91.8 Other nonspecific abnormal finding of lung field (principal); I25.10 Atherosclerotic heart disease of native coronary artery without angina pectoris
CPT/HCPCS: 71250

== ENCOUNTER → 2024-10-06 10:51 | Outpatient (CLI) | payer OTHER, SELFPAY ==
[2024-10-06 12:11] LABS: Cholesterol 245 mg/dL (140-199); HDL Cholesterol 42 mg/dL (40-60); Triglycerides 169 mg/dL (35-150)
[2024-10-06 12:41] LABS: TSH w/ Reflex to FT4 91.20 uIU/mL (0.47-4.68)
[2024-10-06 13:21] LABS: Free T4, Direct Thyroxine 0.25 ng/dL (0.78-2.19); Hemoglobin A1C% w Est Avg Glu 6.7 % (4.0-6.0)
== END ==
PROVIDERS: PCP Family Medicine; Referring Provider Family Medicine; Visit Provider Family Medicine
DX: R73.01 Impaired fasting glucose (principal); E03.9 Hypothyroidism, unspecified; T38.0X5A Adverse effect of glucocorticoids and synthetic analogues, initial encounter; E78.5 Hyperlipidemia, unspecified
CPT/HCPCS: 36415; 80061; 83036; 84439; 84443